=== PATIENT | female | born 1935 | race Caucasian/White ===

== ENCOUNTER 2020-05-22 04:22 | Outpatient (CLI) | payer MEDICARE, OTHER, SELFPAY ==
[2020-05-24 09:23] LABS: SARS-CoV-2 RNA Not Detected (NotDetected); SARS-CoV-2 RNA Source Nasal/Nares
== END 2020-05-22 04:42 ==
PROVIDERS: PCP Family Medicine; Visit Provider Surgery Surgical Oncology
DX: Z11.59 Encounter for screening for other viral diseases (principal); Z01.818 Encounter for other preprocedural examination
CPT/HCPCS: U0003